=== PATIENT | male | born 1970 | race Caucasian/White ===

== ENCOUNTER → 2023-08-14 | Outpatient (CLI) | payer BC ==
--- NOTE | 2023-08-14 20:32 | MR ---
EXAMINATION TYPE: MR shoulder LT wo con DATE OF EXAM: 08/14/2023 COMPARISON: None HISTORY: Left shoulder pain. TECHNIQUE: Multiplanar, multisequence imaging of the left shoulder is performed without contrast. 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 There is a small glenohumeral joint effusion . There is diffuse atrophy of the shoulder musculature. There is a partial-thickness intrasubstance linear tear of the supraspinatus tendon without retractio n of the musculotendinous junction. The subscapularis and infraspinatus tendons are intact. The biceps tendon is normal in signal intensity and position within the bicipital groove. There is a tear of the superior cartilaginous labrum consistent with a SLAP injury. IMPRESSION: 1. Rotator cuff tear involving supraspinatus tendon as described. 2. SLAP injury. 3. Diffuse muscular atrophy. 4. Moderate AC joint degeneration. 5. Small glenohumeral joint effusion.
== END | disposition home or self-care (01) ==
LOC: RADMRIMAIN 11:22
PROVIDERS: ATTEND Orthopaedic Surgery
DX: M19.012 Primary osteoarthritis, left shoulder (principal); M75.102 Unspecified rotator cuff tear or rupture of left shoulder, not specified as traumatic; M62.512 Muscle wasting and atrophy, not elsewhere classified, left shoulder